=== PATIENT | female | born 2005 | race Caucasian/White ===

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

== ENCOUNTER 2025-01-30 18:27 | Emergency (ER) | payer OTHER ==
[~2025-01-30] VITALS: Ht 175.2 cm; Wt 47.6 kg
[2025-01-30] MEDS ORDERED: ZOLOFT100 MG PO (19:18)
[2025-01-30 19:37] LABS: BILIRUBIN Negative (Negative); BLOOD Negative (Negative); CLARITY Cloudy (Clear); COLOR Yellow (Yellow); GLUCOSE Negative (Negative); KETONE Trace (Negative); LEUKO ESTERASE 2+ (Negative); NITRITE Negative (Negative); SPECIFIC GRAVITY >= 1.030 (1.001-1.030)
[2025-01-30 19:46] LABS: RBC 0-2 rbc/hpf (0-2); WBC 31-40 wbc/hpf (0-5)
[2025-01-30 19:47] LABS: BACTERIA 1+; EPITHELIAL CELLS 16-20; MUCOUS 2+
== END 2025-01-30 19:27 | disposition home or self-care (01) ==
LOC: ED 18:27
PROVIDERS: Internal Medicine
DX: N39.0 Urinary tract infection, site not specified (principal); Z20.822 Contact with and (suspected) exposure to COVID-19; R11.10 Vomiting, unspecified; Z79.899 Other long term (current) drug therapy